=== PATIENT | male | born 1955 | race Caucasian/White ===

== ENCOUNTER 2017-02-12 16:01 | Emergency (ER) | payer BC, OTHER ==
[2017-02-12 16:08] VITALS: TEMP 98; O2SAT 97
--- NOTE | 2017-02-12 16:16 | CPEKG ---
Heart Rate: 58 RR Interval: 1034 P-R Interval: 180 QRSD Interval: 98 QT Interval: 408 QTC Interval: 401 P Kent: 50 QRS Kent: 17 T Wave Kent: 20 EKG Severity - ABNORMAL ECG - EKG Impression: SINUS RHYTHM EKG Impression: PROBABLE ANTEROSEPTAL INFARCT, OLD Electronically Signed By: Kyle Richmond 16-Feb-2017 14:44:21
--- NOTE | 2017-02-12 16:17 | EDPHY ---
H & P Time Seen by Provider: 02/12/17 16:05 HPI/ROS: 61-year-old male with prior history of coronary artery disease with stent placement 4 years ago, pulmonary embolus 10 years ago no longer on anticoagulants Presents complaining of chest and back tightness primarily his mid thoracic back that began yesterday and has been constant, minor but noticeable. No cough no fevers no chills no shortness of breath. No leg swelling no calf swelling no leg pain no recent injuries no prolonged travel. Additionally patient has been doing several work outs earlier in the week including rowing, and much more heavy lifting than usual. He also states he has been under much more stressed than usual with a sick parent. Prior episode of pulmonary embolus associated with a long drive, no clotting disorder identified at that time. Review of systems General no fever no chills no weakness HEENT no eye pain no eye discharge. No eye redness, no sore throat Respiratory no cough, no shortness of breath Cardiac positive chest pain, no peripheral edema GI no abdominal pain, no diarrhea, no constipation, no nausea, no vomiting no flank pain, no hematuria, no dysuria Musculoskeletal positive myalgias, no joint pain Heme no easy bruising, no easy bleeding Endo no polyuria, no polydipsia Skin no rashes, no pruritus Neuro no syncope, no dizziness, no headaches Psych is no suicidal ideation, no homicidal ideation Source: Patient Exam Limitations: No limitations - Personal History Current Tetanus/Diphtheria Vaccine: Yes - Medical/Surgical History Hx Asthma: No Hx Chronic Respiratory Disease: No Hx Diabetes: No Hx Cardiac Disease: Yes Hx Renal Disease: No Hx Cirrhosis: No Hx Alcoholism: No Hx Splenectomy or Spleen Trauma: No Other PMH: Stent- CO/PE/Appy - Family History Significant Family History: No pertinent family hx - Social History Smoking Status: Never smoked Alcohol Use: None Drug Use: None - Physical Exam Exam: 61-year-old male alert and oriented in no acute distress nontoxic appearance afebrile HEENT atraumatic normocephalic, extraocular muscles intact, anicteric Oropharynx negative for erythema negative exudate, tolerating her own secretions Neck supple no meningismus Lungs clear to auscultation bilaterally Heart regular rate and rhythm without murmur rub or gallop Abdomen nondistended normoactive bowel sounds soft nontender Back no CVA tenderness, no step-offs, no spinal tenderness Extremities no cyanosis clubbing or edema Neuro alert and oriented, no focal deficits Constitutional: Initial Vital Signs Temperature (C) 36.6 C 02/12/17 16:06 Heart Rate 78 02/12/17 16:06 Respiratory Rate 18 02/12/17 16:06 Blood Pressure 124/72 H 02/12/17 16:06 O2 Sat (%) 97 02/12/17 16:06 O2 Delivery Mode Room Air Allergies/Adverse Reactions: No Known Allergies Allergy (Unverified 02/12/17 16:04) Home Medications: Medication Instructions Recorded Aspirin 02/12/17 Atorvastatin Calcium 02/12/17 Lisinopril 02/12/17 Metaproterenol Sulfate 02/12/17 Medical Decision Making - Diagnostics Imaging Results: Imaging Impressions Chest X-Ray 02/12/17 16:20 Impression: Chest negative for acute cardiopulmonary abnormality. Chest/Thorax CTA 02/12/17 16:47 Impression: 1. No evidence of pulmonary embolic disease. 2. Minimal basilar atelectasis. Results called and discussed with Cecelia Andrea MD on 02/12/2017 at 18:13 ED Course/Re-evaluation: Patient seen and evaluated for chest and back tightness that began yesterday. No associated symptoms EKG normal sinus rhythm, no ischemic changes Chest x-ray negative CBC CMP D-dimer troponin all negative CT angio chest negative Impression Chest and back pain likely musculoskeletal in nature Exacerbated by recent increase in work outs as well as recent increase in stress related to a family illness Plan Discharge home Follow-up with primary care physician - Data Points Laboratory Results: Laboratory Results 02/12/17 16:20 02/12/17 16:20 02/12/17 02/12/17 02/12/17 16:20 16:20 16:20 WBC 11.36 10^3/uL H 10^3/uL (3.80-9.50) RBC 4.80 10^6/uL 10^6/uL (4.40-6.38) Hgb 15.3 g/dL g/dL (13.7-17.5) Hct 42.6 % % (40.0-51.0) MCV 88.8 fL fL (81.5-99.8) MCH 31.9 pg pg (27.9-34.1) MCHC 35.9 g/dL g/dL (32.4-36.7) RDW 11.9 % % (11.5-15.2) Plt Count 170 10^3/uL 10^3/uL (150-400) MPV 10.0 fL fL (8.7-11.7) Neut % (Auto) 75.4 % H % (39.3-74.2) Lymph % (Auto) 12.1 % L % (15.0-45.0) [place] % (Auto) 10.7 % % (4.5-13.0) Eos % (Auto) 1.2 % % (0.6-7.6) Baso % (Auto) 0.3 % % (0.3-1.7) Nucleat RBC Rel Count 0.0 % % (0.0-0.2) Absolute Neuts (auto) 8.56 10^3/uL H 10^3/uL (1.70-6.50) Absolute Lymphs (auto) 1.38 10^3/uL 10^3/uL (1.00-3.00) Absolute Monos (auto) 1.22 10^3/uL H 10^3/uL (0.30-0.80) Absolute Eos (auto) 0.14 10^3/uL 10^3/uL (0.03-0.40) Absolute Basos (auto) 0.03 10^3/uL 10^3/uL (0.02-0.10) Absolute Nucleated RBC 0.00 10^3/uL 10^3/uL (0-0.01) Immature Gran % 0.3 % % (0.0-1.1) Immature Gran # 0.03 10^3/uL 10^3/uL (0.00-0.10) PT 13.7 SEC SEC (12.0-15.0) INR 1.08 (0.83-1.16) APTT 28.8 SEC SEC (23.0-38.0) D-Dimer 0.39 ug/mLFEU ug/mLFEU (0.00-0.50) Sodium 135 mEq/L mEq/L (134-144) Potassium 3.9 mEq/L mEq/L (3.5-5.2) Chloride 95 mEq/L L mEq/L (97-110) Carbon Dioxide 27 mEq/l mEq/l (22-31) Anion Gap 13 mEq/L mEq/L (8-16) BUN 9 mg/dL mg/dL (7-23) Creatinine 0.7 mg/dL mg/dL (0.7-1.3) Estimated GFR > 60 Glucose 109 mg/dL H mg/dL (70-100) Calcium 8.7 mg/dL mg/dL (8.5-10.4) Total Bilirubin 1.7 mg/dL H mg/dL (0.1-1.4) AST 22 IU/L IU/L (17-59) ALT 33 IU/L IU/L (21-72) Alkaline Phosphatase 77 IU/L IU/L (38-126) Troponin I < 0.012 ng/mL ng/mL (0-0.034) Total Protein 6.9 g/dL g/dL (6.3-8.2) Albumin 3.7 g/dL g/dL (3.5-5.0) Departure - Departure Disposition: Home, Routine, Self-Care Clinical Impression: Upper back pain, Tightness in chest Condition: Good Instructions: Back Pain (ED), Chest Pain (ED) Additional Instructions: Rest, drink plenty of fluids, acetaminophen for back pain Follow-up with your primary care physician in the next 1-3 days if you are continuing to have symptoms Referrals: NONE *PRIMARY CARE P,. [Unknown] - As per Instructions
[2017-02-12 16:28] LABS: % IMMATURE GRANULYOCYTES 0.3 % (0.0-1.1); ABSOLUTE IMMATURE GRANULOCYTES 0.03 10^3/uL (0.00-0.10); ADD DIFF? NO; ADD MORPH? NO; ADD SCAN? NO; ATYPICAL LYMPHOCYTE FLAG 0 (0-99); FRAGMENT RBC FLAG 0 (0-99); HEMATOCRIT 42.6 % (40.0-51.0); HEMOGLOBIN 15.3 g/dL (13.7-17.5); LEFT SHIFT FLG 0 (0-99); LIPEMIA HEMOLYSIS FLAG 90 (0-99); MEAN CELL HEMOGLOBIN 31.9 pg (27.9-34.1); MEAN CELL HEMOGLOBIN CONCENTR. 35.9 g/dL (32.4-36.7); MEAN CELL VOLUME 88.8 fL (81.5-99.8); PLATELET CLUMPS FLAG 0 (0-99); PLATELET COUNT 170 10^3/uL (150-400); RED CELL DISTRIBUTION WIDTH 11.9 % (11.5-15.2)
[2017-02-12 16:43] LABS: ALANINE AMINOTRANSFERASE 33 IU/L (21-72); ALBUMIN 3.7 g/dL (3.5-5.0); ALKALINE PHOSPHATASE 77 IU/L (38-126); ANION GAP 13 mEq/L (8-16); ASPARTATE AMINOTRANSFERASE 22 IU/L (17-59); BILIRUBIN,TOTAL 1.7 mg/dL (0.1-1.4); CALCIUM 8.7 mg/dL (8.5-10.4); CARBON DIOXIDE 27 mEq/l (22-31); CHLORIDE 95 mEq/L (97-110); CREATININE 0.7 mg/dL (0.7-1.3); GLOMERULAR FILTRATION RATE > 60; GLUCOSE 109 mg/dL (70-100); POTASSIUM 3.9 mEq/L (3.5-5.2); SODIUM 135 mEq/L (134-144); TOTAL PROTEIN 6.9 g/dL (6.3-8.2)
[2017-02-12 16:44] LABS: INR 1.08 (0.83-1.16); PROTIME(PATIENT) 13.7 SEC (12.0-15.0)
[2017-02-12 16:45] LABS: APTT 28.8 SEC (23.0-38.0)
[2017-02-12 16:56] LABS: TROPONIN I < 0.012 ng/mL (0-0.034)
[2017-02-12] MEDS ORDERED: IOPAMIDOL (ISOVUE 370) 100 ML BTL IV ONE (17:09)
[2017-02-12 19:01] VITALS: BP 133/70; PULSE 57; RESP 16
== END 2017-02-12 18:30 | disposition home or self-care (01) ==
LOC: CED 16:01
DX: R07.89 Other chest pain (principal); M54.6 Pain in thoracic spine; I25.2 Old myocardial infarction; I25.10 Atherosclerotic heart disease of native coronary artery without angina pectoris; Z95.5 Presence of coronary angioplasty implant and graft; Z79.82 Long term (current) use of aspirin
CPT/HCPCS: 71020-PO; 71275-PO; 80053-PO; 84484-PO; 85025-PO; 85378-PO; 85610-PO; 85730-PO; Q9967

== ENCOUNTER 2018-04-19 14:10 | Inpatient (IN) | payer BC ==
[2018-04-19] MEDS ORDERED: IBUPROFEN 600 MG TAB PO ONE (15:06)
[2018-04-19] MEDS ORDERED: ACETAMINOPHEN 500 MG TAB PO ONE (15:07)
--- NOTE | 2018-04-19 15:34 | EDPHY ---
H & P Time Seen by Provider: 04/19/18 14:53 HPI/ROS: This patient complains of foot and leg pain following a 4 mi race earlier today. He explains that he had a pulmonary embolism 12 years ago after a long drive and has had some degree of chronic leg swelling since that time presumably from prior clot burden and left lower extremity diminishing venous return and he wears compressive stockings to help with the baseline swelling. Today he wore a compressive stocking is more compressive than usual and ran 4 miles with increasing pain paresthesias to the leg and foot during the race that was gradual in onset. But by the time he finish the race he had moderate foot pain that prevented weight-bearing. The pain is focal at the dorsum of the left midfoot. He also has moderate pain to the left posterior calf and about 50% increase in the swelling compared to baseline. He notices some posterior calf tenderness as well. He is concerned about potential recurrence of DVT. ROS: Constitutional: No fevers or other complaints no fatigue. HEENT: No URI symptoms or other complaints recently Pulmonary: No pleuritic pain or shortness of breath Cardiovascular: Mild lightheadedness that is baseline for him when he is exercising per patient. No heart palpitations. No right leg swelling or pain. GI: No nausea vomiting abdominal pain or other complaints new line integumentary: No complaints 7 point ROS is otherwise negative. Past Medical/Surgical History: Pulmonary embolism 12 years ago in the setting of immobilization Myocardial infarction with LAD stent in 2012 at [facility] Hypertension Dyslipidemia Social History: Patient is regular jogger. He is accompanied by his today Nonsmoker, no drug use, occasional alcohol No recent immobilization or trauma. Smoking Status: Never smoked Physical Exam: General Appearance: Alert, no distress. Eyes: Pupils equal and round no pallor or injection. ENT, Mouth: Mucous membranes moist. Respiratory: There are no retractions, lungs are clear to auscultation. Cardiovascular: Regular rate and rhythm. No murmur gallop rub. He maintains 2 + symmetric dorsalis pedis and posterior tibialis pulses bilaterally. Gastrointestinal: Abdomen is soft and nontender, no masses, bowel sounds normal. Neurological: GCS 15 with no focal deficits. Skin: Warm and dry, no rashes. Musculoskeletal: Neck is supple nontender. Extremities are symmetrical, full range of motion with the exception of the left lower extremity Left lower extremity: Patient has no knee tenderness or swelling does have moderate left calf swelling and tenderness with positive Homans. He also has circumferential ankle swelling with mild tenderness and moderate tenderness to the dorsum of the left midfoot. There is associated mild edema to the dorsum of the foot. Psychiatric: Mood and affect are normal DIFFERENTIAL DIAGNOSIS: After history and physical exam differential diagnosis was considered for transient leg ischemia from constrictive compressive stocking during exertion, stress fracture to midfoot, DVT, muscle strain Constitutional: Initial Vital Signs Temperature (C) 36.6 C 04/19/18 14:33 Heart Rate 77 04/19/18 14:33 Respiratory Rate 14 04/19/18 14:33 Blood Pressure 126/72 H 04/19/18 14:33 O2 Sat (%) 95 04/19/18 14:33 O2 Delivery Mode Room Air Allergies/Adverse Reactions: No Known Allergies Allergy (Verified 04/19/18 14:32) Home Medications: Medication Instructions Recorded Aspirin 02/12/17 Atorvastatin Calcium 02/12/17 Lisinopril 02/12/17 Metoprolol Succinate 04/19/18 MDM/Departure - MDM Diagnostics: Three-view foot x-rays: Mild degenerative change versus periosteal abnormality to the dorsal navicular area per my interpretation. I then reviewed our radiologist, Dr. Love's official read noting this as degenerative change dorsum of ft. Imaging Results: Imaging Impressions Foot X-Ray 04/19/18 15:29 Impression:1. Nothing acute identified. Specifically no radiographic evidence for a stress fracture. 2. Findings of chronic plantar fasciitis. Extremity Venous Study 04/19/18 15:51 Impression: Left lower extremity deep vein thrombosis involving the femoral vein as well as the popliteal vein. Results called and discussed with ANTOLIN KHALIL M.D. on 04/19/2018 at 17:40. Medications Given: Discontinued Medications Acetaminophen (Tylenol) 1,000 mg PO EDNOW ONE Stop: 04/19/18 15:08 Last Admin: 04/19/18 15:25 Dose: 1,000 mg Ibuprofen (Motrin) 600 mg PO EDNOW ONE Stop: 04/19/18 15:07 Last Admin: 04/19/18 15:25 Dose: 600 mg ED Course/Re-evaluation: Ibuprofen Tylenol p.o. For discomfort with improvement. Phlebotomy for D-dimer, CBC, basic metabolic panel The D-dimer is elevated prompting Doppler ultrasound order. I counseled patient regarding this and regarding his foot x-rays negative for fracture. After ibuprofen talus had partial relief of discomfort Doppler is positive for DVT from popliteal femoral with moderate burden. The clot may proceed higher into the pelvis per radiologist. I spoke with patient about this finding and spoke with Dr. Barrow initially about the read as well as our interventional radiologist Dr. Gonsales he requests a CT venogram abdomen pelvis and lower extremity for further delineation of the clot to facilitate decision on catheter directed thrombolysis. I also had a conversation with the patient about anticoagulants options-low molecular weight heparin verses Xarelto. Patient prefers Xarelto. He is given a 15 mg dose of rivaroxaban I spoke with Dr. Dougherty at [facility] emergency department accepts the patient for transfer for further workup and treatment. - Depart Disposition: [facility] ER Clinical Impression: DVT (deep venous thrombosis) Qualifiers: DVT location: lower extremity Affected thrombotic vein of extremity: unspecified lower extremity distal vein Chronicity: acute Laterality: left Qualified Code(s): I82.4Z2 - Acute embolism and thrombosis of unspecified deep veins of left distal lower extremity Condition: Good Instructions: Deep Vein Thrombosis (ED) Additional Instructions: Diagnosis: Left lower extremity DVT Plan: Proceed directly to [facility] Emergency Department for further workup and treatment of ear DVT. Referrals: NONE *PRIMARY CARE P,. [Primary Care Provider] - As per Instructions
[2018-04-19 16:58] LABS: PLATELET COUNT 204 10^3/uL (150-400)
[2018-04-19] MEDS ORDERED: RIVAROXABAN 15 MG TAB PO ONE (17:57)
--- NOTE | 2018-04-19 19:09 | EDPHY ---
H & P Stated Complaint: swelling,nu,bness, and pain left foot for 4 hours Time Seen by Provider: 04/19/18 14:53 HPI/ROS: CHIEF COMPLAINT: DVT HISTORY OF PRESENT ILLNESS: Patient is a 62-year-old man with a history of PE remotely no longer anticoagulated who was seen at [facility] today for leg swelling on the left. This began after 4 mile race this morning. He had an ultrasound that revealed popliteal and femoral vein thrombus. Interventional Radiology was consulted and they requested that he come here for CT venogram and possibly thrombectomy. The patient is in moderate pain. He has been trying to keep his leg elevated. Swelling is improved. Patient states that he does have some swelling at baseline in that leg chronically. He did receive rivaroxaban him at [facility]. REVIEW OF SYSTEMS: Constitutional: denies: chills, fever, recent illness, recent injury EENTM: denies: blurred vision, double vision, nose congestion Respiratory: denies: cough, shortness of breath Cardiac: denies: chest pain, irregular heart rate, lightheadedness, palpitations Gastrointestinal/Abdominal: denies: abdominal pain, diarrhea, nausea, vomiting, blood streaked stools Genitourinary: denies: dysuria, frequency, hematuria, pain Musculoskeletal: See HPI Skin: denies: lesions, rash, jaundice, bruising Neurological: denies: headache, numbness, paresthesia, tingling, dizziness, weakness Hematologic/Lymphatic: denies: blood clots, easy bleeding, easy bruising Immunologic/allergic: denies: HIV/AIDS, transplant EXAM: GENERAL: Well-appearing, well-nourished and in no acute distress. HEAD: Atraumatic, normocephalic. EYES: Pupils equal round and reactive to light, extraocular movements intact, sclera anicteric, conjunctiva are normal. ENT: TMs normal, nares patent, oropharynx clear without exudates. Moist mucous membranes. NECK: Normal range of motion, supple without lymphadenopathy or JVD. LUNGS: Breath sounds clear to auscultation bilaterally and equal. No wheezes rales or rhonchi. HEART: Regular rate and rhythm without murmurs, rubs or gallops. ABDOMEN: Soft, nontender, normoactive bowel sounds. No guarding, no rebound. No masses appreciated. BACK: No CVA tenderness, no spinal tenderness, step-offs or deformities EXTREMITIES: Moderate swelling left lower extremity, minimal tenderness to palpation of calf and thigh. No erythema. Normal sensation and movement. NEUROLOGICAL: Cranial nerves II through XII grossly intact. Normal speech, normal gait. 5/5 strength, normal movement in all extremities, normal sensation PSYCH: Normal mood, normal affect. SKIN: Warm, dry, normal turgor, no visible rashes or lesions. Source: Patient Exam Limitations: No limitations - Personal History Current Tetanus Diphtheria and Acellular Pertussis (TDAP): Unsure - Medical/Surgical History Hx Asthma: No Hx Chronic Respiratory Disease: No Hx Diabetes: No Hx Cardiac Disease: Yes Hx Renal Disease: No Hx Cirrhosis: No Hx Alcoholism: No Hx HIV/AIDS: No Hx Splenectomy or Spleen Trauma: No Other PMH: cardiac stents, pulmonary embolus 12 years ago, [place] 5 years ago - Social History Smoking Status: Never smoked Alcohol Use: None Constitutional: Initial Vital Signs Temperature (C) 36.6 C 04/19/18 14:33 Heart Rate 77 04/19/18 14:33 Respiratory Rate 14 04/19/18 14:33 Blood Pressure 126/72 H 04/19/18 14:33 O2 Sat (%) 95 04/19/18 14:33 O2 Delivery Mode Room Air Allergies/Adverse Reactions: No Known Allergies Allergy (Verified 04/19/18 14:32) Home Medications: Medication Instructions Recorded Aspirin EC [Aspirin EC 81 mg (*)] 81 mg PO DAILY 04/19/18 Atorvastatin Calcium [Lipitor 40 40 mg PO HS 04/19/18 mg (*)] Lisinopril [Zestril 5 mg (*)] 5 mg PO DAILY 04/19/18 Metoprolol Succinate Xr [Toprol Xl 12.5 mg PO HS 04/19/18 25 mg (*)] Medical Decision Making - Diagnostics Imaging Results: Imaging Impressions Foot X-Ray 04/19/18 15:29 Impression:1. Nothing acute identified. Specifically no radiographic evidence for a stress fracture. 2. Findings of chronic plantar fasciitis. Extremity Venous Study 04/19/18 15:51 Impression: Left lower extremity deep vein thrombosis involving the femoral vein as well as the popliteal vein. Results called and discussed with ANTOLIN KHALIL M.D. on 04/19/2018 at 17:40. Imaging: Discussed imaging studies w/ negotiator Radiologist ED Course/Re-evaluation: 9:[address] Gonsales is here and is evaluated the patient and reviewed the CT venogram. He requests admission to the hospital service on heparin drip and compression devices and will plan IR procedure tomorrow. 9:40 p.m. I discussed the case with Dr. Wylie who will admit to the hospital service. Differential Diagnosis: Partial list of the Differential diagnosis considered include but were not limited to; DVT, infection and although unlikely based on the history and physical exam, I also considered renal disease, cardiac disease. - Data Points Laboratory Results: Laboratory Results 04/19/18 15:15 04/19/18 04/19/18 15:31 15:15 WBC 8.92 10^3/uL 10^3/uL (3.80-9.50) RBC 4.45 10^6/uL 10^6/uL (4.40-6.38) Hgb 14.2 g/dL g/dL (13.7-17.5) Hct 41.3 % % (40.0-51.0) MCV 92.8 fL fL (81.5-99.8) MCH 31.9 pg pg (27.9-34.1) MCHC 34.4 g/dL g/dL (32.4-36.7) RDW 12.5 % % (11.5-15.2) Plt Count 204 10^3/uL 10^3/uL (150-400) MPV 10.2 fL fL (8.7-11.7) Neut % (Auto) 76.8 % H % (39.3-74.2) Lymph % (Auto) 13.3 % L % (15.0-45.0) [place] % (Auto) 8.7 % % (4.5-13.0) Eos % (Auto) 0.6 % % (0.6-7.6) Baso % (Auto) 0.3 % % (0.3-1.7) Nucleat RBC Rel Count 0.0 % % (0.0-0.2) Absolute Neuts (auto) 6.84 10^3/uL H 10^3/uL (1.70-6.50) Absolute Lymphs (auto) 1.19 10^3/uL 10^3/uL (1.00-3.00) Absolute Monos (auto) 0.78 10^3/uL 10^3/uL (0.30-0.80) Absolute Eos (auto) 0.05 10^3/uL 10^3/uL (0.03-0.40) Absolute Basos (auto) 0.03 10^3/uL 10^3/uL (0.02-0.10) Absolute Nucleated RBC 0.00 10^3/uL 10^3/uL (0-0.01) Immature Gran % 0.3 % % (0.0-1.1) Immature Gran # 0.03 10^3/uL 10^3/uL (0.00-0.10) POC Sodium 137 mEq/L mEq/L (135-145) POC Potassium 3.8 mEq/L mEq/L (3.3-5.0) POC Chloride 100.0 mEq/L mEq/L (97-110) POC Total CO2 25 mEq/L mEq/L (22-31) POC BUN 19 mg/dL mg/dL (7-23) POC Creatinine 0.8 mg/dL mg/dL (0.7-1.3) POC Glucose 95 mg/dL mg/dL (70-100) POC Calcium 9.0 mg/dL mg/dL (8.5-10.4) Medications Given: Discontinued Medications Acetaminophen (Tylenol) 1,000 mg PO EDNOW ONE Stop: 04/19/18 15:08 Last Admin: 04/19/18 15:25 Dose: 1,000 mg Heparin Sodium (Porcine) (Heparin Injection) 0 unit IVP EDNOW ONE Stop: 04/19/18 21:36 Last Admin: 04/19/18 21:50 Dose: 7,800 units Heparin Sodium (Porcine) (Heparin 50 Units/Ml (Premix)) 500 mls @ 0 mls/hr IV EDNOW ONE; Per Protocol PRN Reason: Protocol Stop: 04/19/18 21:36 Last Admin: 04/19/18 21:55 Dose: 500 mls Ibuprofen (Motrin) 600 mg PO EDNOW ONE Stop: 04/19/18 15:07 Last Admin: 04/19/18 15:25 Dose: 600 mg Rivaroxaban (Xarelto) 15 mg PO EDNOW ONE Stop: 04/19/18 17:58 Last Admin: 04/19/18 18:17 Dose: 15 mg Point of Care Test Results: Chemistry 04/19/18 15:31 POC Sodium 137 mEq/L mEq/L (135-145) POC Potassium 3.8 mEq/L mEq/L (3.3-5.0) POC Chloride 100.0 mEq/L mEq/L (97-110) POC Total CO2 25 mEq/L mEq/L (22-31) POC BUN 19 mg/dL mg/dL (7-23) POC Creatinine 0.8 mg/dL mg/dL (0.7-1.3) POC Glucose 95 mg/dL mg/dL (70-100) POC Calcium 9.0 mg/dL mg/dL (8.5-10.4) D-Dimer D-Dimer Collection Date 04/19/18 D-Dimer Collection Time 15:15 D-Dimer (ng/ml) [id number] Departure - Departure Disposition: [facility] Inpatient Acute Clinical Impression: DVT (deep venous thrombosis) Qualifiers: DVT location: lower extremity Affected thrombotic vein of extremity: unspecified lower extremity distal vein Chronicity: acute Laterality: left Qualified Code(s): I82.4Z2 - Acute embolism and thrombosis of unspecified deep veins of left distal lower extremity Condition: Good
[2018-04-19] MEDS ORDERED: IOPAMIDOL (ISOVUE 370) 100 ML BTL IV ONE (19:40)
[2018-04-19] MEDS ORDERED: HEPARIN 10,000 UNIT/10 ML MDV (1,000 UNIT/ML) IVP ONE (21:35)
[2018-04-19] MEDS ORDERED: HEPARIN/DEXTROSE 500 ML IV ONE (21:35)
[2018-04-19] MEDS ORDERED: ACETAMINOPHEN 325 MG TAB PO PRN (22:12)
[2018-04-19] MEDS ORDERED: ONDANSETRON DISINTEGRATING 4 MG TAB PO PRN (22:12)
[2018-04-19] MEDS ORDERED: ONDANSETRON 4 MG/2 ML VIAL IVP PRN (22:12)
[2018-04-19] MEDS ORDERED: HEPARIN 10,000 UNIT/10 ML MDV (1,000 UNIT/ML) IVP PRN (22:14)
--- NOTE | 2018-04-19 22:46 | PDGENHP ---
History and Physical - Chief Complaint L leg swelling - History of Present Illness 62 yo M w/ hx of CAD and PE presents w/ L leg swelling. Patient ran a race this morning and began to notice increased swelling, pain, and numbness in his left leg afterwards. He tells me he has mild, chronic swelling in his left leg from a presumed prior clotting event. He last had a PE 12 years ago. He was on warfarin therapy for a few years and this was then stopped. He went on a long car ride prior to his previous PE but had no obvious provocations. Today he went to the [facility] were an ultrasound revealed a DVT. IR was consulted and requested patient be admitted for thrombolysis tomorrow noting the extent of the clot. At the time of my evaluation patient is comfortable with minimal pain. He denies chest pain or shortness of breath. Case discussed with Dr. Wylie, previous records reviewed. History Information - Allergies/Home Medication List Allergies/Adverse Reactions: No Known Allergies Allergy (Verified 04/19/18 14:32) Home Medications: Aspirin EC [Aspirin EC 81 mg (*)] 81 mg PO DAILY 04/19/18 [Last Taken 04/19/18] Atorvastatin Calcium [Lipitor 40 mg (*)] 40 mg PO HS 04/19/18 [Last Taken ] Lisinopril [Zestril 5 mg (*)] 5 mg PO DAILY 04/19/18 [Last Taken 04/19/18] Metoprolol Succinate Xr [Toprol Xl 25 mg (*)] 12.5 mg PO HS 04/19/18 [Last Taken 04/18/18] I have personally reviewed and updated: family history, medical history - Past Medical History coronary artery disease, pulmonary embolism - Surgical History Reports: coronary stent - Family History Additional family history: Denies family history of blood clots although his brother does have venous insufficiency - Social History Smoking Status: Never smoked Review of Systems Review of Systems: ROS: 10pt was reviewed & negative except for what was stated in HPI & below Physical Exam Physical Exam: Temp Pulse Resp BP Pulse Ox 36.8 C 59 L 16 110/59 L 98 04/19/18 21:44 04/19/18 22:05 04/19/18 22:05 04/19/18 22:05 04/19/18 22:05 Constitutional: no apparent distress, not in pain Eyes: PERRL, EOMI Ears, Nose, Mouth, Throat: moist mucous membranes, no oral mucosal ulcers Cardiovascular: regular rate and rhythym, no murmur, rub, or gallop, edema (2+ LLE) Peripheral Pulses: 2+: dorsalis-pedis (L) Respiratory: no respiratory distress, clear to auscultation Gastrointestinal: normoactive bowel sounds, soft, non-tender abdomen Skin: warm, normal color Musculoskeletal: full muscle strength, no muscle tenderness Neurologic: AAOx3, CN II-XII Intact Psychiatric: interacting appropriately, not anxious Lab Data & Imaging Review 04/19/18 15:15 WBC 8.92 10^3/uL (3.80-9.50) 04/19/18 15:15 RBC 4.45 10^6/uL (4.40-6.38) 04/19/18 15:15 Hgb 14.2 g/dL (13.7-17.5) 04/19/18 15:15 Hct 41.3 % (40.0-51.0) 04/19/18 15:15 MCV 92.8 fL (81.5-99.8) 04/19/18 15:15 MCH 31.9 pg (27.9-34.1) 04/19/18 15:15 MCHC 34.4 g/dL (32.4-36.7) 04/19/18 15:15 RDW 12.5 % (11.5-15.2) 04/19/18 15:15 Plt Count 204 10^3/uL (150-400) 04/19/18 15:15 MPV 10.2 fL (8.7-11.7) 04/19/18 15:15 Neut % (Auto) 76.8 % (39.3-74.2) H 04/19/18 15:15 Lymph % (Auto) 13.3 % (15.0-45.0) L 04/19/18 15:15 [place] % (Auto) 8.7 % (4.5-13.0) 04/19/18 15:15 Eos % (Auto) 0.6 % (0.6-7.6) 04/19/18 15:15 Baso % (Auto) 0.3 % (0.3-1.7) 04/19/18 15:15 Nucleat RBC Rel Count 0.0 % (0.0-0.2) 04/19/18 15:15 Absolute Neuts (auto) 6.84 10^3/uL (1.70-6.50) H 04/19/18 15:15 Absolute Lymphs (auto) 1.19 10^3/uL (1.00-3.00) 04/19/18 15:15 Absolute Monos (auto) 0.78 10^3/uL (0.30-0.80) 04/19/18 15:15 Absolute Eos (auto) 0.05 10^3/uL (0.03-0.40) 04/19/18 15:15 Absolute Basos (auto) 0.03 10^3/uL (0.02-0.10) 04/19/18 15:15 Absolute Nucleated RBC 0.00 10^3/uL (0-0.01) 04/19/18 15:15 Immature Gran % 0.3 % (0.0-1.1) 04/19/18 15:15 Immature Gran # 0.03 10^3/uL (0.00-0.10) 04/19/18 15:15 POC Sodium 137 mEq/L (135-145) 04/19/18 15:31 POC Potassium 3.8 mEq/L (3.3-5.0) 04/19/18 15:31 POC Chloride 100.0 mEq/L (97-110) 04/19/18 15:31 POC Total CO2 25 mEq/L (22-31) 04/19/18 15:31 POC BUN 19 mg/dL (7-23) 04/19/18 15:31 POC Creatinine 0.8 mg/dL (0.7-1.3) 04/19/18 15:31 POC Glucose 95 mg/dL (70-100) 04/19/18 15:31 POC Calcium 9.0 mg/dL (8.5-10.4) 04/19/18 15:31 Imaging Review: Imaging Impressions Foot X-Ray 04/19/18 15:29 Impression:1. Nothing acute identified. Specifically no radiographic evidence for a stress fracture. 2. Findings of chronic plantar fasciitis. Extremity Venous Study 04/19/18 15:51 Impression: Left lower extremity deep vein thrombosis involving the femoral vein as well as the popliteal vein. Results called and discussed with ANTOLIN KHALIL M.D. on 04/19/2018 at 17:40. Assessment & Plan Assessment: 62 yo M w/ hx of CAD and PE presents with LLE DVT. Plan: 1. Acute LLE DVT - Occurred after jogging so no clear precipitating factor. He has a prior hx of PE after a car ride so he has shown clear propensity to clot with only mild provocation. Ultrasound reveals Left lower extremity deep vein thrombosis involving the femoral vein as well as the popliteal vein. Per IR, findings are appropriate for directed thrombolysis and patient is being admitted for this. - Heparin gtt - NPO @ MN - Interventional radiology aware - Will likely require lifelong anticoagulation moving forward after his procedure 2. CAD - Hx of [place] 5 years ago with stent placement. He is compliant with ASA, statin, BB, and SHABBIR. He denies chest pain on admission. Diet - NPO @ MN Code - Full Ppx - Heparin gtt Dispo - Admit under inpatient status noting need for thrombolysis followed by period of observation in the ICU.
--- NOTE | 2018-04-19 22:55 | PDCONSULT ---
Orchard Manager Note: Interventional Radiology Consult Note: Patient is a 62 yo M with newly diagnosed left fempop DVT. Symptoms became worse today during a run. CT venogram showed partially occlusive clot in the popliteal and one of the duplicated femoral veins. No evidence of May-Thurner. On examination, patient's left leg is swollen, erythematous, slightly painful, and demonstrates large varices. Treatment options were discussed with the patient and his . Given his active lifestyle, he opted to pursue catheter-directed thrombolysis. Recommendations: 1. NPO after midnight. 2. Start heparin drip and place SCDs on the legs. 3. Obtain morning CBC, BMP, fibrinogen, and INR. 4. Will require ICU drip if the decision is made to pursue 2 day therapy ( rather than single session).
[2018-04-20 02:40] LABS: INR 1.68 (0.83-1.16); PROTIME(PATIENT) 19.9 SEC (12.0-15.0)
[2018-04-20 05:14] LABS: PLATELET COUNT 175 10^3/uL (150-400)
[2018-04-20 05:24] LABS: INR 1.58 (0.83-1.16)
--- NOTE | 2018-04-20 09:07 | HOSPPROG ---
Hospitalist Progress Note Assessment/Plan: Karena is a 62-year-old male has a history of coronary artery disease and pulmonary emboli. He presented the emergency room with a left lower extremity DVT. I reviewed his care with the admitting physician. I also reviewed his care with Interventional Radiology. The plan is to get a repeat ultrasound for further evaluation and further discuss tPA. * Acute LLE DVT - hx of PE. - Ultrasound reveals Left lower extremity deep vein thrombosis involving the femoral vein as well as the popliteal vein - Reviewed w IR about directed thrombolysis -will get a repeat ultrasound - Will likely require lifelong anticoagulation moving forward after his procedure *CAD - Hx of [place] 5 years ago with stent placement. He is compliant with ASA, statin, BB, and SHABBIR. He denies chest pain on admission. Subjective: Noe said his leg is feeling better today. Objective: Vital Signs Temp Pulse Resp BP Pulse Ox 36.5 C 66 16 107/65 96 04/20/18 08:00 04/20/18 08:00 04/20/18 08:00 04/20/18 08:00 04/20/18 08:00 Laboratory Results 04/20/18 04:15 04/20/18 04:15 PT 19.0 SEC (12.0-15.0) H 04/20/18 04:15 INR 1.58 (0.83-1.16) H 04/20/18 04:15 - Physical Exam Constitutional: no apparent distress, appears nourished, uncomfortable Eyes: PERRL Ears, Nose, Mouth, Throat: hearing normal Cardiovascular: regular rate and rhythym Respiratory: no respiratory distress Gastrointestinal: normoactive bowel sounds Skin: warm, other (left leg with generalized swelling and moreso at the ankle area) Musculoskeletal: full muscle strength Neurologic: AAOx3 Psychiatric: interacting appropriately ICD10 Worksheet Patient Problems: Problems Problem Status Onset DVT (deep venous thrombosis) Acute
[2018-04-20] MEDS ORDERED: D5W 1/2 NS 1,000 ML IV SCH (09:15)
--- NOTE | 2018-04-20 11:04 | PDMN ---
Medical Necessity Medical necessity: MCG: M350 DVT of LE, 62 y/o w/ acute DVT LLE femoral and popliteal veins, placed on heparin gtt, IR consultation w/ thrombolysis scheduled. Pt has hx PE and CAD w/ NM. Anticipate >2MN.
--- NOTE | 2018-04-20 11:13 | PDCONSULT ---
Drainage Inspector Note: Interventional Radiology Note: Patient examined this morning. Left leg remains slightly swollen but pain and redness has significantly improved. CEAP 2. Repeat ultrasound shows improved clot burden in the left popliteal artery with chronic thrombus in the femoral vein. A patent duplicated femoral vein also seen. 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 At this stage, benefit of CDT is limited given improvement in clinical and imaging findings overnight with heparin drip. Patient and are in agreement. Recommendations: 1. Keep left leg elevated and consider compression stockings. 2. Transition heparin drip to outpatient anticoagulation medication. 3. Hematology consult to assess why thrombi are forming in this active gentleman. 4. If symptoms worsen, repeat ultrasound and potential CDT.
[2018-04-20] MEDS: HEPARIN/DEXTROSE 500 ML IV SCH (13:00)
--- NOTE | 2018-04-20 17:17 | ASMTCMCOM ---
CM Note CM Note Notes: Pt admitted with a DVT, after he went for a run and his leg became swollen. D/w RN, anticipate pt will dc home w/support of when medically stable. CM available for any changes. DC Plan: Independent Date Signed: 04/20/2018 05:16 PM Electronically Signed By:Noemi Linares RN
[2018-04-20] MEDS ORDERED: METOPROLOL SUCCINATE XR 25 MG TAB PO SCH (21:00)
[2018-04-20] MEDS ORDERED: ATORVASTATIN CALCIUM 40 MG TAB PO SCH (21:00)
[2018-04-21] MEDS: HEPARIN/DEXTROSE 500 ML IV SCH (08:06)
--- NOTE | 2018-04-21 10:53 | HOSPPROG ---
Hospitalist Progress Note Assessment/Plan: Karena is a 62-year-old male has a history of coronary artery disease and pulmonary emboli. He presented the emergency room with a left lower extremity DVT. * Acute LLE DVT - hx of PE. - Ultrasound reveals Left lower extremity deep vein thrombosis involving the femoral vein as well as the popliteal vein - his left lower extremity looks much improved - Will likely require lifelong anticoagulation moving forward after his procedure *CAD - Hx of [place] 5 years ago with stent placement. He is compliant with ASA, statin, BB, and SHABBIR. He denies chest pain on admission. *Plan: dc home, both the pharmacist and myself discuss treatment options of the various OAC. He and his decided on Xarelto due to the daily dosing after bid dosing for 21 days. Subjective: Noe is feeling much better, able to ambulate. Objective: Vital Signs Temp Pulse Resp BP Pulse Ox 36.5 C 61 16 106/65 96 04/21/18 07:48 04/21/18 07:48 04/21/18 07:48 04/21/18 07:48 04/21/18 07:48 Laboratory Results 04/20/18 04:15 04/20/18 04:15 04/20/18 04/21/18 04/22/18 05:59 05:59 05:59 Intake Total 500 Balance 500 PT 19.0 SEC (12.0-15.0) H 04/20/18 04:15 INR 1.58 (0.83-1.16) H 04/20/18 04:15 - Physical Exam Constitutional: no apparent distress, appears nourished, not in pain Eyes: PERRL Ears, Nose, Mouth, Throat: hearing normal Respiratory: no respiratory distress Skin: warm, other (left leg with much less swelling) Musculoskeletal: full muscle strength Neurologic: AAOx3 Psychiatric: interacting appropriately ICD10 Worksheet Patient Problems: Problems Problem Status Onset DVT (deep venous thrombosis) Acute
[2018-04-21 11:12] VITALS: BP 115/72
[2018-04-21] MEDS ORDERED: RIVAROXABAN 15 MG TAB PO SCH (11:15)
--- NOTE | 2018-04-21 11:30 | GDS ---
[f rep st] DISCHARGE SUMMARY DISCHARGE DIAGNOSES: 1. Acute left lower extremity deep venous thrombosis. 2. Coronary artery disease with a history of myocardial infarction. HISTORY OF PRESENT ILLNESS: Briefly, the patient is a 62-year-old male with a history of coronary artery disease and pulmonary emboli. He presented to the emergency room with a left lower extremity DVT. He had an aorta with runoff CTA. This showed duplicated left femoral veins and mild termination of occluded femoral vein, likely representing chronic thrombosis. The left popliteal vein appears partially occluded. He had a partially occlusive thrombus within the right posterior tibial vein. He had associated varicose veins bilaterally, worse on the left. He has some mild subcutaneous edema on the left. He has a borderline size spleen. Subsequently, he had an ultrasound performed which showed left lower extremity DVT involving the femoral vein as well as the popliteal vein. He was seen and evaluated by Dr. Gonsales with Interventional Radiology. Initial recommendation was to do tPA. He had a repeat Doppler study of the left lower extremity, which showed interval improvement in clot burden. The popliteal vein was completely patent and the femoral vein is partially occluded. It noted he has a chronic component to the clot. After further discussion with the patient, tPA was not warranted. He stayed on a heparin drip. His swelling in his leg markedly improved and he was able to ambulate quite well. Today, he will be discharged home on Xarelto and further followup with his primary care provider. HOSPITAL COURSE PER PROBLEM: 1. Acute left lower extremity DVT with a history of PE. He will likely need lifelong anticoagulation. I have recommended that he follow up with control clerk auditing. He will take Xarelto. The patient has already verified that his insurance covers this. 2. Coronary artery disease with a history of an [place] 5 years ago. He has been compliant with his aspirin therapy as well as his SHABBIR inhibitor and his beta meche. I have told him to discuss with his primary care provider about continuing aspirin while he is on Xarelto. For now, will leave it on his profile. DISCHARGE CONDITION: Stable. Blood pressure is 106/65, heart rate is 61, respiratory rate is 16, O2 sats on room air 95%, temperature is 36.5 Celsius. MEDICATIONS AT DISCHARGE: Please see the EMR. DISCHARGE INSTRUCTIONS: 1. To take Xarelto with food, take the 15 mg dose twice daily for the next 21 days. After he has completed this, to decrease the dose to 20 mg daily. 2. To get followup with one of the primary care doctors. I have given him the name of several doctors to follow up with. 3. I recommend he follow up with a control clerk auditing. 4. To discuss with his doctor he has a mildly enlarged spleen. Greater than 30 minutes discharging and coordinating the patient's care. /[id number]/MODL MTDD
== END 2018-04-21 11:59 | disposition home or self-care (01) | DRG 301 ==
LOC: CED 14:10 → OBSVTOIN 22:13 → F3E 22:40
PROVIDERS: ADMIT Internal Medicine; ATTEND Family Medicine
DX: I82.432 Acute embolism and thrombosis of left popliteal vein (principal); I82.442 Acute embolism and thrombosis of left tibial vein; I82.512 Chronic embolism and thrombosis of left femoral vein; I25.10 Atherosclerotic heart disease of native coronary artery without angina pectoris; I83.92 Asymptomatic varicose veins of left lower extremity; I25.2 Old myocardial infarction; Z86.711 Personal history of pulmonary embolism; Z79.82 Long term (current) use of aspirin; Z95.5 Presence of coronary angioplasty implant and graft
CPT/HCPCS: 73630-PO; 80048-PO; 85520-90; 93971-PO; J1644; Q9967

== ENCOUNTER 2018-11-02 07:26 | Day surgery (SDC) | payer BC ==
[2018-11-02] MEDS ORDERED: NS 1,000 ML IV ONE (07:32)
[2018-11-02] MEDS ORDERED: diphenhydrAMINE 25 MG CAP PO ONE ×2 (07:32→07:52)
[2018-11-02] MEDS ORDERED: FAMOTIDINE 20 MG TAB PO ONE (07:32)
[2018-11-02] MEDS ORDERED: DIAZEPAM 5 MG TAB PO ONE (07:32)
[2018-11-02] MEDS ORDERED: ASPIRIN EC 325 MG TAB PO ONE ×2 (07:32→07:52)
[2018-11-02] MEDS ORDERED: DIAZEPAM 5 MG TAB ONE (07:52)
[2018-11-02] MEDS ORDERED: FAMOTIDINE 20 MG TAB ONE (07:52)
[2018-11-02 08:06] LABS: PLATELET COUNT 179 10^3/uL (150-400)
[2018-11-02 08:14] LABS: INR 1.02 (0.83-1.16); PROTIME(PATIENT) 13.6 SEC (12.0-15.0)
[2018-11-02] MEDS ORDERED: LIDOCAINE 1% 300 MG/30 ML SDV ONE (08:46)
[2018-11-02] MEDS ORDERED: MIDAZOLAM 2 MG/2 ML VIAL ONE (08:46)
[2018-11-02] MEDS ORDERED: IOPAMIDOL (ISOVUE-370) 150 ML BTL IV ONE (08:46)
[2018-11-02] MEDS ORDERED: HEPARIN 10,000 UNIT/10 ML MDV (1,000 UNIT/ML) ONE (08:46)
[2018-11-02] MEDS ORDERED: fentaNYL 100 MCG/2 ML INJ ONE (08:46)
[2018-11-02] MEDS ORDERED: VERAPAMIL 5 MG/2 ML VIAL ONE (08:46)
--- NOTE | 2018-11-02 08:49 | PDPROPOC ---
Sedation Plan of Care Sedation Plan of Care: vital signs stable, mental status noted, patient educated of risks, benefits, alternatives, patient can tolerate sedation ASA Classification: ASA 3 Planned drugs: fentanyl, midazolam Mallampati Score: Class 3 Mallampati Reference Image: Patient passed 3-3-2 rule?: Yes
--- NOTE | 2018-11-02 08:49 | PDHPUP ---
History & Physical Update H&P update statement: This history and physical update is based on an assessment of the patient which was completed after admission or registration (within 24 hours), but prior to the surgery/procedure. H&P update: H&P reviewed & patient examined, no change in patient's condition since H&P completed
--- NOTE | 2018-11-02 09:22 | PDDXCAT ---
Diagnostic Cath Note - . Date: 11/02/18 [employer] Architect: Danica Indication: Class I/II angina, intolerance to med therapy or failure to respond , other (intermediate risk stress test) - Procedure Access: left wrist Procedure: left heart catheterization, coronary angiography, left ventriculogram - Materials Left Heart Cath size: 5F Left Heart Cath materials: JL3.5, JR4.0 - Findings-Left Heart Catheterization LM: The left main is 8mm in size and bifurcates into an LAD and left circumflex. There is no evidence of flow-limiting obstruction. There is DIANE III flow. LAD: The left anterior descending artery is 4mm in size. The vessel was previously stented across the principal diagonal with no evidence of restenosis. There is DIANE III flow to the distal vessel. LCX: The left circuflex is 4mm in size it gives rise to an obtuse marginal system that is free of flow limiting obstruction. There is DIANE III flow to the distal vessel. RCA: The right coronary artery is 3mm in size and dominant. The vessel gives rise to a posterior descending artery. There are luminal irregularities consistent with underlying atherosclerosis. Maximal luminal stenosis is 5%. There is DIANE III flow throughout. EDP: 20mmHg LVEF: 60% Wall motion: On the LV gram there is normal LV systolic function. The EF is 60% . There is mild apical hypokinesis that is consistent with a known history of previous anterior myocardial infarction. The visualized portion of the thoracic aortic valve is on the upper limits of normal in size. There is no gradient on pullback across the aortic valve. There is no evidence of obey dissection of the thoracic aorta. The thoracic aorta is the upper limits of normal in size - Findings-Right Heart Catheterization AO: Complications: NONE Estimated blood loss: <50ml Closure method: TR Band Assessment: The patient has non flow-limiting coronary disease. There was evidence of prior stent implantation in the principal diagonal of the left anterior descending artery without evidence of restenosis. The patient has mild anterior apical hypokinesis which is consistent with his previous diagnosis of myocardial infarction. I think the patient would benefit from medical management. Plan: The patient should be treated medically to achieve a non-HDL Cholesterol of less than 100 mg/dL and anti platelet therapy with ASA is also recommended, specifically a dose of 81 mg per day. Intervention: NONE Patient Problems: Problems Problem Status Onset DVT (deep venous thrombosis) Acute
[2018-11-02] MEDS ORDERED: OXYCODONE/APAP 5/325 TAB PO PRN (10:04)
[2018-11-02] MEDS ORDERED: NITROGLYCERIN 0.4 MG BTL SL PRN (10:04)
[2018-11-02] MEDS ORDERED: ONDANSETRON 4 MG/2 ML VIAL IVP PRN (10:04)
[2018-11-02] MEDS ORDERED: ATROPINE SULFATE 1 MG/10 ML SYR IVP PRN (10:04)
[2018-11-02] MEDS ORDERED: HYDROCODONE/APAP 5/325 TAB PO PRN (10:04)
--- NOTE | 2018-11-02 23:42 | CPEKG ---
Test Reason : OPEN Blood Pressure : / mmHG Vent. Rate : 064 BPM Atrial Rate : 065 BPM P-R Int : 183 ms QRS Dur : 094 ms QT Int : 402 ms P-R-T Axes : 036 034 030 degrees QTc Int : 415 ms Sinus rhythm Confirmed by Dwain Putnam ([id number]) on 11/02/2018 11:41:27 PM Referred By: Confirmed By:Dwain Putnam
== END 2018-11-02 13:16 | disposition home or self-care (01) ==
LOC: FCATH 07:26
PROVIDERS: ATTEND Internal Medicine Cardiovascular Disease
PROC: B2111ZZ Fluoroscopy of Multiple Coronary Arteries using Low Osmolar Contrast (ICD-10-PCS; principal; 2018-11-02)
PROC: 4A023N7 Measurement of Cardiac Sampling and Pressure, Left Heart, Percutaneous Approach (ICD-10-PCS; principal; 2018-11-02)
PROC: B2151ZZ Fluoroscopy of Left Heart using Low Osmolar Contrast (ICD-10-PCS; principal; 2018-11-02)
DX: I25.119 Atherosclerotic heart disease of native coronary artery with unspecified angina pectoris (principal); I10 Essential (primary) hypertension; E78.5 Hyperlipidemia, unspecified; I25.2 Old myocardial infarction; Z86.711 Personal history of pulmonary embolism; Z86.718 Personal history of other venous thrombosis and embolism; Z95.5 Presence of coronary angioplasty implant and graft
CPT/HCPCS: J1644; J2250; J3010; Q9967